=== PATIENT | male | born 1990 | race Caucasian/White ===

== ENCOUNTER 2017-05-30 22:12 | Emergency (ER) | payer OTHER ==
[~2017-05-30] VITALS: Ht 180.3 cm; Wt 97.6 kg
[2017-05-30] MEDS ORDERED: DIPHENHYDRAMINE 50 MG/ML, 1ML IVPush ONE (22:30)
[2017-05-30] MEDS ORDERED: methylPREDNISolone SOD SUCC 125 MG/2 ML IVPush ONE (22:30)
[2017-05-30] MEDS ORDERED: SODIUM CHLORIDE FLUSH 10ML SYR IVF ONE (22:30)
[2017-05-30] MEDS ORDERED: SODIUM CHLORIDE 0.9% 1,000ML IVBOLUS ONE (22:30)
[2017-05-30] MEDS ORDERED: FAMOTIDINE 20 MG/2 ML IVPush ONE (22:30)
[2017-05-30] MEDS ORDERED: EPINEPHRINE 1 MG/ML, 1ML SQ ONE (22:30)
[2017-05-30] MEDS ORDERED: ONDANSETRON 2MG/ML, 2ML IVPush ONE (22:30)
[2017-05-30] MEDS ORDERED: DIPHENHYDRAMINE 50 MG/ML, 1ML ONE (22:36)
[2017-05-30] MEDS ORDERED: EPINEPHRINE 1 MG/ML, 1ML ONE (22:36)
[2017-05-30] MEDS ORDERED: ONDANSETRON 2MG/ML, 2ML ONE (22:36)
[2017-05-30] MEDS ORDERED: methylPREDNISolone SOD SUCC 125 MG/2 ML ONE (22:36)
[2017-05-30] MEDS ORDERED: FAMOTIDINE 20 MG/2 ML ONE (22:37)
[2017-05-31 00:38] VITALS: BP 130/73
== END 2017-05-31 00:42 | disposition home or self-care (01) ==
LOC: ED 23:59
DX: T78.1XXA Other adverse food reactions, not elsewhere classified, initial encounter (principal); X58.XXXA Exposure to other specified factors, initial encounter
CPT/HCPCS: 96361; 96372; 96374; 96375; 99284; J0171; J1200; J2930; J7030